=== PATIENT | female | born 1940 | race Caucasian/White ===

== ENCOUNTER 2017-11-09 10:40 | Inpatient (IN) ==
[2017-11-03 13:03] LABS: Appearance,Urine CLOUDY; Bacteria,Urine FEW /hpf (0); Bilirubin,Urine NEG (NEG); Color,Urine YELLOW; Glucose,Urine (UA) NEGATIVE (NEG); Leukocyte Esterase,Urine 500 /uL (NEG); Mucus,Urine FEW /hpf (0); Protein,Urine NEG (NEG); Specific Gravity,Urine 1.015 (1.000-1.035); Urine Amorphous Crystals FEW /hpf (0); Urine Blood 0.03 mg/dL (<0.03); Urine Budding Yeast FEW /hpf (0); Urine Hyaline Cast 1 /lpf (0-2); Urine RBC 7 /hpf (0-1); Urine Squamous Epithelial Cell 20 /hpf (0-4); Urine Transitional Epi Cells 1 /hpf (0-2); Urine WBC 108 /hpf (0-4); Urobilinogen,Urine NEG (NEG)
[2017-11-03 15:00] LABS: Blood Urea Nitrogen 18 mg/dl (8-23)
[2017-11-03 15:04] LABS: Basophils # (Auto) 0 K/mcL (0.0-0.3); Basophils % (Auto) 0.9 % (0.0-2.0); Eosinophils # (Auto) 0.2 K/mcL (0.0-0.7); Eosinophils % (Auto) 4.5 % (0.0-7.0); Granulocytes % (Auto) 54.2 % (38.0-78.0); Lymphocytes # (Auto) 1.2 K/mcL (1.5-4.8); Lymphocytes % (Auto) 32.3 % (15.5-49.0); Mean Cell Volume 90.4 fL (80.0-100.0); Mean Corpuscular HGB Conc 33.6 g/dL (31.0-36.0); Mean Corpuscular Hemoglobin 30.4 pg (26.0-34.0); Monocytes # (Auto) 0.3 K/mcL (0.1-0.9); Monocytes % (Auto) 8.1 % (1.0-12.0); Platelet Count 170 K/mcL (140-440); RBC 5.16 M/mcL (4.00-5.20); Red Cell Distribution Width 13.8 % (11.5-14.5)
[~2017-11-09 10:40] MED LIST: 0.9 % SODIUM CHLORIDE 9 ML, KETOROLAC 30 MG, ROPIVACAINE HCL/PF 49.5 ML, EPINEPHrine 0.... IJ SCH; ACETAMINOPHEN 500 MG TABLET PO SCH; CELECOXIB 200 MG CAPSULE PO SCH; PREGABALIN 75 MG CAPSULE PO SCH; ceFAZolin 1 GM VIAL IV SCH; oxyCODONE 10 MG TAB.ER.12H PO SCH
[2017-11-09] MEDS ORDERED: GENTAMICIN PER PHARMACY IV ONE (14:43)
[2017-11-09] MEDS ORDERED: GENTAMICIN SULFATE 200 MG in 0.9 % SODIUM CHLORIDE 250 ML IV SCH (15:00)
[2017-11-09] MEDS ORDERED: PROPOFOL 200 MG/20 ML VIAL IV ONE (15:07)
[2017-11-09] MEDS ORDERED: MIDAZOLAM 2 MG/2 ML VIAL ONE (15:07)
[2017-11-09] MEDS ORDERED: LIDOCAINE HCL/PF 100 MG/5 ML SYRINGE IV ONE (15:07)
[2017-11-09] MEDS ORDERED: ONDANSETRON 4 MG/2 ML VIAL ONE (15:07)
[2017-11-09] MEDS ORDERED: KETAMINE 100 MG/ML ML ONE (15:07)
[2017-11-09] MEDS ORDERED: GENTAMICIN SULFATE 800 MG/20 ML VIAL IR ONE (15:55)
[2017-11-09] MEDS ORDERED: MEPERIDINE 25 MG/ML SYRINGE IV PRN (16:23)
[2017-11-09] MEDS ORDERED: IPRATROPIUM/ALBUTEROL 3 ML AMPUL.NEB NEB PRN (16:23)
[2017-11-09] MEDS ORDERED: fentaNYL 100 MCG/2 ML VIAL IV PRN (16:23)
[2017-11-09] MEDS ORDERED: METHOCARBAMOL 1,000 MG/10 ML VIAL IV PRN (16:23)
[2017-11-09] MEDS ORDERED: PROMETHAZINE 25 MG/ML VIAL IV PRN (16:23)
[2017-11-09] MEDS ORDERED: ONDANSETRON 4 MG/2 ML VIAL IV PRN ×2 (16:23→16:44)
[2017-11-09] MEDS ORDERED: LACTATED RINGERS 1,000 ML IV SCH (16:30)
[2017-11-09] MEDS ORDERED: HYDROcodone/APAP 10/325MG TABLET PO PRN (16:44)
[2017-11-09] MEDS ORDERED: ACETAMINOPHEN 325 MG TABLET PO PRN (16:44)
[2017-11-09] MEDS ORDERED: MAGNESIUM HYDROXIDE 30 ML ORAL.SUSP PO PRN (16:44)
[2017-11-09] MEDS ORDERED: POLYETHYLENE GLYCOL 3350 17 GM PACKET PO PRN (16:44)
[2017-11-09] MEDS ORDERED: TRANEXAMIC ACID 1,000 MG/10 ML VIAL IV SCH (16:44)
[2017-11-09] MEDS ORDERED: HYDROmorphone 2 MG/ML VIAL IV PRN (16:44)
[2017-11-09] MEDS ORDERED: FLEETS ADULT ENEMA PR PRN (16:44)
[2017-11-09] MEDS ORDERED: BENZOCAINE/MENTHOL 1 LOZENGE PO PRN (16:44)
[2017-11-09] MEDS ORDERED: BISACODYL 10 MG SUPP.RECT PR PRN (16:44)
[2017-11-09] MEDS ORDERED: oxyCODONE/APAP 5/325MG TABLET PO PRN (16:44)
--- NOTE | 2017-11-09 16:44 | Brief Operative Note ---
Date of procedure: 11/09/17 Pre-op diagnosis: right knee djd Post-op diagnosis: same Procedure: right tka with robot Grafts/Implants: Yes Anesthesia: MILAA Surgeon: Ascencion Mcdowell Surplus Property Disposal Agent: Garrison Ramires Estimated blood loss (cc): 50 Tourniquet Time (Minutes): 57 Specimens Removed/Pathology: none sent Condition: stable Disposition: PACU
[2017-11-09] MEDS ORDERED: 0.45 % SODIUM CHLORIDE 1,000 ML IV SCH (16:45)
--- NOTE | 2017-11-09 17:17 | Operative Note ---
DATE OF OPERATION: 11/09/2017 PREOPERATIVE DIAGNOSIS: Right knee degenerative arthritis. POSTOPERATIVE DIAGNOSIS: Right knee degenerative arthritis. PROCEDURE: Right total knee arthroplasty. SURGEON: Ascencion Mcdowell M.D. CONTAMINATED LAND CONSULTANT: Garrison Ramires PA-C. ANESTHESIA: General LMA anesthesia. COMPLICATIONS: None. DESCRIPTION OF PROCEDURE: The patient was brought to the operating room and put to sleep with general LMA anesthesia. Once asleep, the patient had the right leg sterilely prepped and draped in the usual sterile fashion. Timeout was performed, and we confirmed the site and the fact that preop antibiotics and tranexamic acid had been given. Once this was done, the tourniquet was inflated to 250 pounds of pressure and midline incision was made. Inspection of the knee showed severe arthritis in all three compartments. She had approximately 12 to 15 degree flexion contracture of the knee with 6 degrees of varus malalignment. With this, we then placed two pins above and below the knee, and the arrays were placed on these pins. One pin on the femur and one pin on the tibia intraarticularly were registered. The medial and lateral malleolus was registered, and the hip center of hip rotation was registered. Thirty points on the femur, thirty points on the tibia were registered, and then we balanced the knee at 90 and 15 degrees. Once these were perfectly balanced, we then took this and registered the robot. We made our tibial cut, registered the robot again to the femur, made our posterior, anterior and anterior chamfer cuts. We changed the blade and made our distal femoral cut and posterior chamfer cut. Once done, we removed these osteophytes and removed the bony fragment on the tibia. Once done, we then removed osteophytes and spurs posteriorly. We tapped into place the femoral and tibial component, setting rotation using the robot. Once these were perfectly positioned, we trialed a size 9 and an 11. The 11 was most appropriate, and this is what we had templated to. This helped gain full extension and stability of the knee with varus valgus stability and made normal alignment of the knee. We irrigated thoroughly and prepared the patella. Its total thickness measured 24 mm in thickness with large spurs which were removed. We cut this to 14 mm and placed a 36 mm poly which covered most of the patella. This tracked perfectly. We then cemented into place the above-mentioned sizes, keeping the knee at 45 degrees with an 11 mm poly. The pins were removed both intraarticular and femoral. Tourniquet deflated at 57 minutes. We controlled bleeding and flushed the knee again to make sure there was no cement evident. We then closed the midvastus approach with #1 Stratafix suture x2. We closed the skin with Stratafix and then adhesive closure on the skin. Sterile bandage was applied. Tourniquet time was approximately 57 minutes. The foot was pink and warm when we left the operating room. BENITA:yoel Job ID: [id number] Doc ID: [id number] Ascencion Mcdowell MD
--- NOTE | 2017-11-09 18:05 | XRay Report ---
CLINICAL INFORMATION: Post-Op Total Knee COMPARISON: None. FINDINGS: Total knee prostheses is anatomically aligned. No osseous abnormalities. Soft tissue swelling seen as expected IMPRESSION: Negative Interpreted and Authenticated by: Fran Bernal 11/09/17
[2017-11-09] MEDS: KETOROLAC 15 MG/ML VIAL IV SCH ×2 (18:12→23:21)
[2017-11-09] MEDS: DOCUSATE SODIUM 100 MG CAPSULE PO SCH (20:29)
[2017-11-09] MEDS: ASPIRIN 325 MG ENTERIC COATED TABLET PO SCH (20:30)
[2017-11-09] MEDS: MINOCYCLINE 100 MG CAPSULE PO SCH (20:30)
[2017-11-09] MEDS: 0.9 % SODIUM CHLORIDE 10 ML SYRINGE IV SCH (20:34)
[2017-11-09] MEDS ORDERED: TEMAZEPAM 15 MG CAPSULE PO PRN (21:00)
[2017-11-09] MEDS ORDERED: SENNOSIDES 1 TABLET PO SCH (21:00)
[2017-11-09] MEDS: ceFAZolin 1 GM VIAL IV SCH (23:18)
[2017-11-10] MEDS: KETOROLAC 15 MG/ML VIAL IV SCH (05:18)
[2017-11-10] MEDS: 0.9 % SODIUM CHLORIDE 10 ML SYRINGE IV SCH (05:18)
--- NOTE | 2017-11-10 07:34 | Orthopedic Progress Note ---
Subjective Patient information: Note initiated : 11/10/17 at 7:33 am Service Date, if different from initiated Date: [] Patient: Anastacia Narvaez 77 y/o F admitted on 11/09/17 for Robotic Total Knee Atrhroplasty (Right). Chief Complaint: [Pt is stable this morning on post operative day 1 without any significant concerns or complaints. Patients vital signs have remained stable. Patients dressing is dry and is grossly intact from a neurovascular and motor standpoint. Patients 10 point ROS is otherwise negative. ] Objective Vital signs: Vital Signs Temp Pulse Pulse Resp BP BP Pulse Ox 11/10/17 03:16 97.4 F 77 16 137/81 91 11/10/17 00:00 97.3 F 72 16 131/77 94 11/09/17 20:57 96.9 F L 77 16 116/75 98 11/09/17 19:56 73 120/86 96 11/09/17 19:26 78 152/85 97 11/09/17 18:56 66 136/79 91 11/09/17 18:41 65 148/83 90 11/09/17 18:26 68 149/84 94 11/09/17 18:11 69 152/88 93 11/09/17 17:56 83 139/82 92 11/09/17 17:50 97.1 F 81 16 138/59 95 11/09/17 17:42 96.7 F L 85 20 126/61 94 11/09/17 17:32 96.7 F L 85 16 122/55 100 11/09/17 17:22 97.8 F 86 17 122/55 100 11/09/17 17:17 82 14 121/69 100 11/09/17 17:12 84 14 131/63 100 11/09/17 17:07 97.0 F 90 90 17 114/68 99 11/09/17 12:00 97.8 F 18 131/90 96 Intake and Output 11/09/17 11/10/17 11/10/17 21:59 05:59 13:59 Intake Total 255 / 255 700 / 700 Output Total 350 / 350 500 / 500 75 / 75 Balance -95 / -95 200 / 200 -75 / -75 Intake: IV 255 / 255 300 / 300 Sodium Chloride 0.45% 1,000 ml 300 / 300 @ 100 mls/hr IV .Q10H [facility] Rx#: [id number] Gentamicin Sulfate 200 mg In 255 / 255 Sodium Chloride 0.9% 250 ml @ 255 mls/hr IV ONCE [facility] Rx#: [id number] Oral 400 / 400 Output: Void Amount 350 / 350 500 / 500 75 / 75 Other: Meal Dinner Percent of Meal Consumed 100% Feeding Ability Independent Urine Appearance Clear Clear Clear Urine Color Straw Pale Pale Urine Odor Normal Normal # Voids 1 Weight 195 lb Intake & Output: Intake & Output 11/09/17 11/10/17 11/10/17 21:59 05:59 13:59 Intake Total 255 / 255 700 / 700 Output Total 350 / 350 500 / 500 75 / 75 Balance -95 / -95 200 / 200 -75 / -75 Weight 195 lb Intake: IV 255 / 255 300 / 300 Sodium Chloride 0.45% 1,000 ml 300 / 300 @ 100 mls/hr IV .Q10H [facility] Rx#: [id number] Gentamicin Sulfate 200 mg In 255 / 255 Sodium Chloride 0.9% 250 ml @ 255 mls/hr IV ONCE [facility] Rx#: [id number] Oral 400 / 400 Output: Void Amount 350 / 350 500 / 500 75 / 75 Other: Meal Dinner Percent of Meal Consumed 100% Feeding Ability Independent Urine Appearance Clear Clear Clear Urine Color Straw Pale Pale Urine Odor Normal Normal # Voids 1 Incision: Yes healing Incision clean and dry: Yes Dressing: Yes clean Weight bearing status: full Neurological exam IM: Yes motor sensory intact, Yes neurovascular intact Extremities exam IM: Yes Foot pink and warm, Yes neurovascular intact - Labs CBC & BMP: 11/10/17 04:30 11/03/17 11:40 Labs: Orthopedic Labs 11/03/17 11:40 PT 13.0 INR 1.0 APTT 11/10/17 11/03/17 04:30 11:40 Hgb 15.7 H Hct 40.9 46.7 Assessment and Plan (1) Hx of total knee arthroplasty The patient has been educated regarding dressing care, Physical Therapy recommendations, home exercises, restrictions, and follow up appointments. The patient has had all necessary DME prescribed. The patient has remained relatively stable during their hospital course. Leave Dermabond patch intact until followup Status: Acute
--- NOTE | 2017-11-10 07:36 | Discharge Summary ---
Ortho Discharge - TKA - Patient Instructions Diet: Regular Diet Activity: activity as tolerated, weight bearing as tolerated Total Knee Protocol: For Total Knee: Start ROM TEE with stationary bike or rocking chair. Work on gaining full extension of knee. Posterior dislocation precautions provided. Hip abductor strengthening and gait training instructions provided. Apply Cryocuff as instructed. Dressing Care: May shower in 2 days Patient Education: Total Knee Replacement (DC) Additional Instructions: CPM for home use - Problem Maintenance (1) Hx of total knee arthroplasty Status: Acute - Follow Up Plan Follow Up Appointments: Garrison Ramires PA-C [Physician Food Court Team Member] - 11/24/17 10:00 am Disposition: Home, Self-Care Prognosis: Good Rehab Potential: Good I certify that the patient requires SNF services: No Overall status at discharge: patient is progressing back to baseline - Orders For Discharge Prescriptions: Aspirin [Ecotrin] 325 mg PO BID #60 tab.ec Docusate Sodium [Colace] 100 mg PO BID #60 cap oxyCODONE/APAP [Percocet 5-325 mg] 1 - 2 tab PO Q4HP PRN #75 tab PRN Reason: Pain Level 3-6
[2017-11-10] MEDS: ceFAZolin 1 GM VIAL IV SCH (07:50)
[2017-11-10] MEDS: ASPIRIN 325 MG ENTERIC COATED TABLET PO SCH (08:44)
[2017-11-10] MEDS: DOCUSATE SODIUM 100 MG CAPSULE PO SCH (08:44)
[2017-11-10] MEDS: MINOCYCLINE 100 MG CAPSULE PO SCH (08:44)
== END 2017-11-10 11:56 | disposition home or self-care (01) | DRG 470 ==
LOC: MEDSUR 11:45
PROVIDERS: ADMIT Orthopaedic Surgery; ATTEND Orthopaedic Surgery

== ENCOUNTER 2018-04-12 06:45 | Inpatient (IN) ==
[2018-04-02 12:36] LABS: Basophils # (Auto) 0 K/mcL (0.0-0.3); Basophils % (Auto) 0.6 % (0.0-2.0); Eosinophils # (Auto) 0.2 K/mcL (0.0-0.7); Lymphocytes # (Auto) 0.8 K/mcL (1.5-4.8); Lymphocytes % (Auto) 20.3 % (15.5-49.0); Mean Cell Volume 90.5 fL (80.0-100.0); Monocytes # (Auto) 0.3 K/mcL (0.1-0.9); Monocytes % (Auto) 8.1 % (1.0-12.0); Platelet Count 156 K/mcL (140-440); RBC 5.21 M/mcL (4.00-5.20); Red Cell Distribution Width 13.8 % (11.5-14.5)
[2018-04-02 12:55] LABS: Appearance,Urine HAZY; Bacteria,Urine 0 /hpf (0); Bilirubin,Urine NEG (NEG); Color,Urine YELLOW; Glucose,Urine (UA) NEGATIVE (NEG); Leukocyte Esterase,Urine 500 /uL (NEG); Mucus,Urine FEW /hpf (0); Protein,Urine NEG (NEG); Specific Gravity,Urine 1.021 (1.000-1.035); Urine Amorphous Crystals FEW /hpf (0); Urine Blood NEG mg/dL (<0.03); Urine Budding Yeast FEW /hpf (0); Urine Hyaline Cast 2 /lpf (0-2); Urine RBC 4 /hpf (0-1); Urine Squamous Epithelial Cell 27 /hpf (0-4); Urine Transitional Epi Cells 1 /hpf (0-2); Urine WBC 107 /hpf (0-4)
[2018-04-02 13:47] LABS: Blood Urea Nitrogen 20 mg/dl (8-23)
[2018-04-12] MEDS ORDERED: PREGABALIN 75 MG CAPSULE PO SCH (07:00)
[2018-04-12] MEDS ORDERED: 0.9 % SODIUM CHLORIDE 9 ML, KETOROLAC 30 MG, ROPIVACAINE HCL/PF 49.5 ML, EPINEPHrine 0.... IJ SCH (07:00)
[2018-04-12] MEDS ORDERED: ACETAMINOPHEN 500 MG TABLET PO SCH (07:00)
[2018-04-12] MEDS ORDERED: ceFAZolin 1 GM VIAL IV SCH (07:00)
[2018-04-12] MEDS ORDERED: oxyCODONE 10 MG TAB.ER.12H PO SCH (07:00)
[2018-04-12] MEDS ORDERED: CELECOXIB 200 MG CAPSULE PO SCH (07:00)
[2018-04-12] MEDS ORDERED: POLYETHYLENE GLYCOL 3350 17 GM PACKET PO PRN (11:07)
[2018-04-12] MEDS ORDERED: FLEETS ADULT ENEMA PR PRN (11:07)
[2018-04-12] MEDS ORDERED: TEMAZEPAM 15 MG CAPSULE PO PRN (11:07)
[2018-04-12] MEDS ORDERED: BENZOCAINE/MENTHOL 1 LOZENGE PO PRN ×2 (11:07→12:10)
[2018-04-12] MEDS ORDERED: MAGNESIUM HYDROXIDE 30 ML ORAL.SUSP PO PRN (11:07)
[2018-04-12] MEDS ORDERED: HYDROmorphone 2 MG/ML VIAL IV PRN (11:07)
[2018-04-12] MEDS ORDERED: HYDROCODONE/APAP 7.5/325MG TABLET PO PRN (11:07)
[2018-04-12] MEDS ORDERED: ONDANSETRON 4 MG/2 ML VIAL IV PRN ×2 (11:07→12:10)
[2018-04-12] MEDS ORDERED: ACETAMINOPHEN 325 MG TABLET PO PRN (11:07)
[2018-04-12] MEDS ORDERED: BISACODYL 10 MG SUPP.RECT PR PRN (11:07)
[2018-04-12] MEDS ORDERED: TRANEXAMIC ACID 1,000 MG/10 ML VIAL IV ONE ×2 (11:07→11:10)
[2018-04-12] MEDS ORDERED: LIDOCAINE HCL/PF 100 MG/5 ML SYRINGE IV ONE (11:10)
[2018-04-12] MEDS ORDERED: ePHEDrine 50 MG/ML AMPUL IV ONE (11:10)
[2018-04-12] MEDS ORDERED: MIDAZOLAM 5 MG/5 ML VIAL IV ONE (11:10)
[2018-04-12] MEDS ORDERED: ONDANSETRON 4 MG/2 ML VIAL IV ONE (11:10)
[2018-04-12] MEDS ORDERED: PROPOFOL 200 MG/20 ML VIAL IV ONE (11:10)
[2018-04-12] MEDS ORDERED: DEXAMETHASONE 10 MG/ML VIAL IV ONE (11:10)
[2018-04-12] MEDS ORDERED: ROPIVACAINE HCL/PF 20 ML VIAL IJ ONE (11:10)
--- NOTE | 2018-04-12 11:10 | Brief Operative Note ---
Date of procedure: 04/12/18 Pre-op diagnosis: left knee djdj severe Post-op diagnosis: same Procedure: left tka with felicia robotics Grafts/Implants: Yes Anesthesia: GETA Complications: none Surgeon: Ascencion Mcdowell Associate Professor Of Biology: Maynor Iyer Estimated blood loss (cc): 50 Tourniquet Time (Minutes): 55 Specimens Removed/Pathology: none sent Condition: stable Disposition: PACU
[2018-04-12] MEDS ORDERED: GENTAMICIN SULFATE 800 MG/20 ML VIAL IR ONE (11:44)
[2018-04-12] MEDS ORDERED: LACTATED RINGERS 250 ML IV PRN (12:10)
[2018-04-12] MEDS ORDERED: PROMETHAZINE 25 MG/ML VIAL IV PRN (12:10)
[2018-04-12] MEDS ORDERED: IPRATROPIUM/ALBUTEROL 3 ML AMPUL.NEB NEB PRN (12:10)
[2018-04-12] MEDS ORDERED: MEPERIDINE 25 MG/ML SYRINGE IV PRN (12:10)
[2018-04-12] MEDS ORDERED: diphenhydrAMINE 50 MG/ML VIAL IV PRN (12:10)
[2018-04-12] MEDS ORDERED: FLUMAZENIL 0.1 MG/ML ML IV PRN (12:10)
[2018-04-12] MEDS ORDERED: NALOXONE HCL 0.4 MG/ML VIAL IV PRN (12:10)
[2018-04-12] MEDS ORDERED: LACTATED RINGERS 1,000 ML IV SCH (12:15)
[2018-04-12] MEDS: fentaNYL 100 MCG/2 ML VIAL IV PRN ×2 (13:10→13:12)
--- NOTE | 2018-04-12 13:15 | Operative Note ---
DATE OF OPERATION: 04/12/2018 PREOPERATIVE DIAGNOSIS: Left knee degenerative arthritis, severe. POSTOPERATIVE DIAGNOSIS: Left knee degenerative arthritis, severe. PROCEDURE: Left total knee arthroplasty using the Aubrey robot. SURGEON: Ascencion Mcdowell M.D. FIG CAPRIFIER: Maynor Iyer PA-C. COMPLICATIONS: None. TOURNIQUET TIME: Approximately 53 minutes. ESTIMATED BLOOD LOSS: About 50 to 70 mL. IMPLANTS: Per nurse's note. It was a 10 mm poly insert with a 35 mm patellar button. DESCRIPTION OF PROCEDURE: The patient was brought to the operating room and put to sleep with general LMA anesthesia. Once asleep, the patient had the left leg sterilely prepped and draped in the usual sterile fashion. Once this was done, a midline incision was made after a timeout had been performed. Preop antibiotics had been given. I then placed an incision, exposed the joint, placed the pins above and below the knee, and registered the center of hip rotation, medial and lateral malleoli. Registered thirty points on the femur and the tibia and then registered its motion. She lacked approximately 3-4 degrees of extension, and she had up to 8 degrees of varus malalignment. At this point, we proceeded with the case after balancing the knee with the implants and made the bony cuts. We removed the bony fragments and meniscus and posterior spurs. Once all done, we then trialed the components which were punched into place. They seemed to fit very nicely. The 9 mm was a little loose in extension and laterally. We placed a 10 mm poly insert and then elevated the medial collateral ligament to balance the knee perfectly. Once done, we irrigated thoroughly and then placed the components after preparing the bone with pulse lavage as well as CarboJet and cemented the components into place. We placed a 10 mm poly with a dished insert in case the PCL were to tear. We then prepared the patella, measuring 24 mm in total thickness. This was cut to approximately 14 mm and placed a 35 mm oval patellar button. This seemed to track very well afterwards. We irrigated thoroughly and cemented into place the above-mentioned sizes. We removed excess cement, deflated the tourniquet at 53 minutes and controlled bleeding with the Bovie. Took out the pins and the intraarticular pins were all accounted for. We closed the midvastus approach with #1 Stratafix x2 sutures and then took the knee through range of motion once more. We then closed the skin with 2-0 Vicryl and adhesive closure. The portals were closed with 4-0 nylon. The patient tolerated this well without complication. BENITA:yoel Job ID: [id number] Doc ID: [id number] Ascencion Mcdowell MD
--- NOTE | 2018-04-12 13:24 | XRay Report ---
HISTORY: Postop left knee replacement FINDINGS: There is a well-positioned left total knee prosthesis. No fractures present. On the lateral view a 2 x 4 mm soft tissue calcification is seen between the prosthetic femoral condyle and the posterior superior margin of the patella. IMPRESSION: Well-positioned left knee prosthesis Interpreted and Authenticated by: Darvin Farah 04/12/18
[2018-04-12] MEDS: 0.45 % SODIUM CHLORIDE 1,000 ML IV SCH (13:52)
[2018-04-12] MEDS: KETOROLAC 15 MG/ML VIAL IV SCH ×2 (13:55→17:50)
[2018-04-12] MEDS: 0.9 % SODIUM CHLORIDE 10 ML SYRINGE IV SCH (13:56)
[2018-04-12] MEDS: ceFAZolin 1 GM VIAL IV SCH (17:50)
[2018-04-12] MEDS ORDERED: SENNOSIDES 1 TABLET PO SCH (21:00)
[2018-04-12] MEDS: ASPIRIN 325 MG ENTERIC COATED TABLET PO SCH (21:42)
[2018-04-12] MEDS: DOCUSATE SODIUM 100 MG CAPSULE PO SCH (21:44)
[2018-04-13] MEDS: 0.45 % SODIUM CHLORIDE 1,000 ML IV SCH ×2 (00:01→09:04)
[2018-04-13] MEDS: 0.9 % SODIUM CHLORIDE 10 ML SYRINGE IV SCH ×2 (00:02→05:55)
[2018-04-13] MEDS: KETOROLAC 15 MG/ML VIAL IV SCH ×3 (00:27→11:49)
[2018-04-13] MEDS: ceFAZolin 1 GM VIAL IV SCH (02:00)
--- NOTE | 2018-04-13 07:19 | Orthopedic Progress Note ---
Subjective Patient information: Note initiated : 04/13/18 at 7:18 am Service Date, if different from initiated Date: [] Patient: Anastacia Narvaez 77 y/o F admitted on 04/12/18 for Left Robotic Total Knee Arthroplasty . Chief Complaint: [Pt is stable this morning on post operative day 1 without any significant concerns or complaints. Patients vital signs have remained stable. Patients dressing is dry and is grossly intact from a neurovascular and motor standpoint. Patients 10 point ROS is otherwise negative. ] Objective Vital signs: Vital Signs Temp Pulse Resp BP Pulse Ox 04/13/18 03:08 97.5 F 92 H 24 H 146/92 94 04/12/18 23:40 97.3 F 100 H 24 H 163/90 95 04/12/18 20:00 92 04/12/18 19:24 97.8 F 97 H 24 H 123/71 92 04/12/18 16:09 137/80 96 04/12/18 15:54 127/83 96 04/12/18 14:54 134/86 95 04/12/18 14:24 141/90 95 04/12/18 14:04 150/85 94 04/12/18 13:59 152/89 93 04/12/18 13:54 164/91 90 04/12/18 13:49 166/100 90 04/12/18 13:41 97.4 F 72 13 160/84 93 04/12/18 13:30 97.3 F 68 13 174/90 93 04/12/18 13:15 97 F 69 11 L 177/71 93 04/12/18 13:10 77 17 191/84 96 04/12/18 13:05 68 19 145/79 100 04/12/18 13:00 65 15 165/90 100 04/12/18 12:57 97.5 F 64 12 164/94 100 Intake and Output 04/12/18 04/13/18 04/13/18 21:59 05:59 13:59 Intake Total 1600 Output Total 425 300 Balance -425 1300 Intake: IV 1000 Sodium Chloride 0.45% 1,000 ml 1000 @ 100 mls/hr IV .Q10H [facility] Rx#: [id number] Oral 600 Output: Void Amount 425 300 Other: Urine Appearance Clear Clear Urine Color Pale Pale Urine Odor Normal # Voids 1 1 Weight 177 lb Intake & Output: Intake & Output 04/12/18 04/13/18 04/13/18 21:59 05:59 13:59 Intake Total 1600 Output Total 425 300 Balance -425 1300 Weight 177 lb Intake: IV 1000 Sodium Chloride 0.45% 1,000 ml 1000 @ 100 mls/hr IV .Q10H [facility] Rx#: [id number] Oral 600 Output: Void Amount 425 300 Other: Urine Appearance Clear Clear Urine Color Pale Pale Urine Odor Normal # Voids 1 1 Incision: Yes healing Incision clean and dry: Yes Dressing: Yes clean Weight bearing status: full Neurological exam IM: Yes motor sensory intact, Yes neurovascular intact Extremities exam IM: Yes Foot pink and warm, Yes neurovascular intact - Labs CBC & BMP: 04/13/18 04:30 04/02/18 10:58 Labs: Orthopedic Labs 04/02/18 10:58 PT 13.2 INR 1.0 04/13/18 04/02/18 04:30 10:58 Hgb 15.6 H Hct 43.4 47.2 Assessment and Plan (1) Hx of total knee arthroplasty The patient has been educated regarding dressing care, Physical Therapy recommendations, home exercises, restrictions, and follow up appointments. The patient has had all necessary DME prescribed. The patient has remained relatively stable during their hospital course. Leave Dermabond patch intact until followup Status: Acute
--- NOTE | 2018-04-13 07:21 | Discharge Summary ---
Ortho Discharge - TKA - Patient Instructions Diet: Regular Diet Activity: activity as tolerated, weight bearing as tolerated Total Knee Protocol: For Total Knee: Start ROM TEE with stationary bike or rocking chair. Work on gaining full extension of knee. Posterior dislocation precautions provided. Hip abductor strengthening and gait training instructions provided. Apply Cryocuff as instructed. Dressing Care: May shower in 2 days, Aquacel Ag - leave on for 5 days Patient Education: Total Knee Replacement (DC) - Problem Maintenance (1) Hx of total knee arthroplasty Status: Acute - Follow Up Plan Follow Up Appointments: Garrison Ramires PA-C [Physician Shoe Trimmer] - 04/27/18 10:40 am Disposition: Home, Self-Care Prognosis: Good Rehab Potential: Good I certify that the patient requires SNF services: No Overall status at discharge: patient is progressing back to baseline - Orders For Discharge Prescriptions: Aspirin [Ecotrin] 325 mg PO BID #60 tab.ec Docusate Sodium [Colace] 100 mg PO BID #60 capsule Hydrocodone/APAP 7.5/325Mg [[place] 7.5-325Mg] 1 - 2 tab PO Q4HP PRN #75 tab PRN Reason: Pain Level 3-6
[2018-04-13] MEDS: DOCUSATE SODIUM 100 MG CAPSULE PO SCH (09:15)
[2018-04-13] MEDS: ASPIRIN 325 MG ENTERIC COATED TABLET PO SCH (09:15)
== END 2018-04-13 12:52 | disposition home or self-care (01) | DRG 470 ==
LOC: MEDSUR 06:45
PROVIDERS: ADMIT Orthopaedic Surgery; ATTEND Orthopaedic Surgery